=== PATIENT | female | born 1965 | race Caucasian/White ===

== ENCOUNTER 2020-07-02 09:04 | Outpatient (CLI) | payer BC, SELFPAY ==
--- NOTE | ~2020-07-02 | MM_ITS ---
EXAMINATION: MM screening [facility] BI w dustin HISTORY: Screening TECHNIQUE: Craniocaudal and mediolateral oblique 3-D tomosynthesis images were obtained and synthetic 2-D images were generated. CAD analysis was submitted and interpreted. COMPARISON: Comparison to multiple prior studies sequentially, with oldest reviewed study dated 06/23. BREAST PARENCHYMAL COMPOSITION: The breasts are extremely dense, which lowers the sensitivity of mamm ography. FINDINGS: There is no evidence of suspicious mass, calcification, or architectural distortion to sugg est malignancy in either breast. There has been no suspicious interval change. IMPRESSION: 1. No mammographic evidence of malignancy. 2. Recommend routine screening mammography in one year. BI-RADS Category 1: Negative Reviewed, dictated and finalized at location A. NURSE
== END 2020-07-02 09:05 | disposition home or self-care (01) ==
DX: Z12.31 Encounter for screening mammogram for malignant neoplasm of breast (principal)
CPT/HCPCS: 77063; 77067

== ENCOUNTER 2022-02-23 13:29 | Outpatient (CLI) | payer BC, SELFPAY ==
--- NOTE | ~2022-02-23 | MM_ITS ---
EXAMINATION: MM screening [facility] BI w dustin HISTORY: Screening TECHNIQUE: Craniocaudal and mediolateral oblique 3-D tomosynthesis images were obtained and synthetic 2-D images were generated. CAD analysis was submitted and interpreted. COMPARISON: Comparison to multiple prior studies sequentially, with oldest reviewed study dated 06/23. BREAST PARENCHYMAL COMPOSITION: . The breasts are extremely dense, which lowers the sensitivity of ma mmography FINDINGS: There is no evidence of suspicious mass, calcification, or architectural distortion to sugg est malignancy in either breast. There has been no suspicious interval change. IMPRESSION: 1. No mammographic evidence of malignancy. 2. Recommend routine screening mammography in one year. BI-RADS Category 1: Negative Reviewed, dictated and finalized at location A.
== END 2022-02-23 13:30 | disposition home or self-care (01) ==
DX: Z12.31 Encounter for screening mammogram for malignant neoplasm of breast (principal)
CPT/HCPCS: 77063; 77067

== ENCOUNTER 2024-01-29 14:48 | Outpatient (CLI) | payer BC, SELFPAY ==
--- NOTE | ~2024-01-29 | XR_ITS ---
EXAMINATION: XR mandible min 4V DATE: 01/29/2024 15:20 INDICATION: Left jaw pain. TECHNIQUE: 4 views of the mandible were obtained. COMPARISON: CT sinuses 03/31/2014 FINDINGS: Alignment is normal. No fracture. Joint spaces are normal. IMPRESSION: 1. Normal mandible. Reviewed, dictated and finalized at location E. IMPRESSION: 1. Normal mandible.
--- NOTE | ~2024-01-29 | XR_ITS ---
EXAMINATION: XR TMJ BI DATE: 01/29/2024 15:20 INDICATION: Left jaw pain. TECHNIQUE: Open mouth and closed mouth views of the right and left temporomandibular joints for a tot al of 4 views were obtained. COMPARISON: CT sinuses 03/31/2014 FINDINGS: There is normal anterior translation of the mandibular condyles in the open-mouth position. No fracture. IMPRESSION: 1. Normal temporomandibular joints. Reviewed, dictated and finalized at location E.
== END 2024-01-29 14:49 ==
LOC: MICIMG 14:51
PROVIDERS: PCP Emergency Medicine; Visit Provider Emergency Medicine
DX: R68.84 Jaw pain (principal)
CPT/HCPCS: 70110; 70330

== ENCOUNTER 2024-03-13 07:57 | Outpatient (CLI) | payer BC, SELFPAY ==
--- NOTE | ~2024-03-13 | DEXA_ITS ---
Bone Density Report Name: ART KEENAN Age: 58 Sex: Female Ethnicity: White Date of : 1965 Indication: postmenopausal; screening for osteoporosis; inflammatory bowel disease; Referring Provider: UNKNOWN, UNKNOWN Study: Bone densitometry was performed. Exam Date: March 13, 2024 Accession number: [id number] Bone Density: Region BMD T-score Z-score Classification AP Spine(L1-L4) 0.995 -0.5 1.0 Normal Femoral Neck (Left) 0.684 -1.5 -0.2 Osteopenia Total Hip (Left) 0.855 -0.7 0.3 Normal Femoral Neck (Right) 0.668 -1.6 -0.3 Osteopenia Total Hip (Right) 0.840 -0.8 0.2 Normal Total Hip Mean 0.848 -0.8 0.3 Normal World Health Organization criteria for BMD impression classify patients as: Normal (T-score at or above -1.0), Osteopenia (T-score between -1.0 and -2.5), or Osteoporosis (T-score at or below -2.5). 10-year Fracture Risk(1): Major Osteoporotic Fracture 7.9% Hip Fracture 0.8% Reported Risk Factors: [place] (), Neck BMD=0.668, BMI=21.9 (1) FRAX(R) Version 3.08. Fracture probability calculated for an untreated patient. Fracture probability may be lower if the patient has received treatment. Clinical Information Provided by Patient: Has used the following medications: Vitamin D Has the following medical conditions: Inflammatory bowel diseases Patient maximum height was 62 Drinks caffeinated beverages Onset of menses at age 10 Number of children 1 Impression: The patient has low bone mass, based on the Right Femoral Neck T-score. The patient has an estimated ten-year risk of hip fracture of 0.8% and an estimated ten-year risk of major fracture of 7.9%, based on the WHO FRAX algorithm. Discussion: BONE DENSITY IS LOW AT ONE OR MORE SKELETAL SITES. This patient's lowest T-score is low at one or more skeletal sites. It meets the World Health Organization's (WHO) criteria for ?low bone mass? (T-score between -1.0 and -2.5). The patient's 10-year risk of fracture as calculated by FRAX is less than the threshold where pharmacological therapy is recommended by the National Osteoporosis Foundation (NOF). However, all treatment decisions require clinical judgment and consideration of individual patient factors, including patient preferences, comorbidities, previous drug use, risk factors not captured in the FRAX model (e.g., frailty, falls, vitamin D deficiency, increased bone turnover, interval significant decline in bone density) and possible under or overestimation of fracture risk by FRAX. The patient should follow a healthful lifestyle (good nutrition with adequate calcium and vitamin D, and appropriate weight-bearing exercise). Follow-Up: Consider repeating this study in 2 to 3 years to reassess this patient's status, or sooner if there is some new clinical indicatio
== END 2024-03-13 07:58 | disposition home or self-care (01) ==
LOC: ANHIMG 07:59
PROVIDERS: PCP Emergency Medicine
DX: Z51.81 Encounter for therapeutic drug level monitoring (principal); Z79.52 Long term (current) use of systemic steroids; Z78.0 Asymptomatic menopausal state; M85.852 Other specified disorders of bone density and structure, left thigh; M85.851 Other specified disorders of bone density and structure, right thigh
CPT/HCPCS: 77080